=== PATIENT | male | born 1960 | race Caucasian/White ===

== ENCOUNTER 2016-09-16 20:32 | Emergency (ER) | payer MEDICAID, OTHER ==
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
[2016-09-16 20:47] VITALS: RESP 20; TEMP 98.1
[2016-09-16] MEDS ORDERED: ONDANSETRON 4 MG/2 ML VIAL ONE (20:59)
[2016-09-16] MEDS ORDERED: NS 1,000 ML IV ONE (21:10)
[2016-09-16] MEDS ORDERED: ONDANSETRON 4 MG/2 ML VIAL IVP ONE (21:10)
[2016-09-16 21:50] VITALS: BP 109/68; PULSE 72; O2SAT 98
--- NOTE | 2016-09-16 23:26 | DX ---
Right Humerus, Two Views Indication: Slipped on ice. Findings: There is a comminuted right humeral neck fracture, extending into the humeral head. No di splacement or angulation. The glenohumeral joint relationship is still normal. The rest of the anna carlie is normal. Impression: Comminuted humeral head and neck fracture.
== END 2016-09-16 22:37 | disposition home or self-care (01) ==
LOC: EDUNIT#
DX: S42.211A Unspecified displaced fracture of surgical neck of right humerus, initial encounter for closed fracture (principal); F17.200 Nicotine dependence, unspecified, uncomplicated; W00.0XXA Fall on same level due to ice and snow, initial encounter
CPT/HCPCS: 96374; A4565; J2405